=== PATIENT | female | born 1960 ===

== ENCOUNTER 2016-12-02 10:38 | Day surgery (SDC) | payer OTHER ==
[2016-11-25 11:14] VITALS: BMI 29.0
--- NOTE | 2016-12-02 12:20 | CP.PCM.PN ---
Objective - Vital Signs/Intake and Output Vital Signs (last 24 hours): Temp Pulse Resp BP Pulse Ox 98.5 F 69 18 128/90 97 12/02/16 11:05 12/02/16 11:05 12/02/16 11:05 12/02/16 11:05 12/02/16 11:05
--- NOTE | 2016-12-02 12:20 | CP.SDSHP ---
Same Day Surgery H & P - History Proposed Procedure: repair of hammer toes 5th digit foot bilateral Pre-Op Diagnosis: painful hammertoe deformity bilateral 5th digit - Previous Medical/Surgical History Pain: 5. - Allergies Allergies: Allergies No Known Allergies Allergy (Verified 11/25/16 09:10) - Physical Exam Vital Signs: Vital Signs 12/02/16 12/02/16 10:59 11:05 Temperature 98.5 F Pulse Rate 69 69 Respiratory 18 Rate Blood Pressure 128/90 O2 Sat by Pulse 97 Oximetry Mental Status: Alert & Oriented x3 Neuro: WNL - {Optional Preform as Required} Integument: WNL Ortho: WNL (tenderness to PIPJ of 5th digit bl) - Impression Impression: Pt S&E in SDS. NPO status confirmed, chart reviewed. All questions and concerns answered. No guarantees given nor implied. Will f/u w/ Dr. Stokes as outpatient Short Stay Discharge - Short Stay Discharge Admitting Diagnosis/Reason for Visit: M20.4 Disposition: HOME/ ROUTINE Medications: Cephalexin [cephalexin] 500 mg PO TID #21 cap oxyCODONE/Acetaminophen [Percocet 5/325 mg Tab] 1 ea PO Q6 PRN #30 tab PRN Reason: Pain, Moderate (4-7) oxyCODONE/Acetaminophen [Percocet 5/325 mg Tab] 5 - 325 mg PO .Q4-6 PRN #30 PRN Reason: Pain, Moderate (4-7) Referrals: Bam Stokes, DPM [Staff Provider] - Additional Instructions (Diet, Activity): -Keep dressing clean dry intact to both feet -wbat with surgical shoe -use cast bag for showering -take prescribed medications as directed -monitor for any signs infection -Follow up at [facility] podiatry clinic with Dr. Stokes 1 week Progress Note/Discharge Note with Instructions: -Pt S&E in recovery with VSS, neurovascular status intact to bilateral lower extremities -Denies f/n/v/c/sob/cp -(+) void, (+) appetite -Dressing to both feet appears c/d/i -Stable for discharge home -Follow up with Dr. Stokes 1 week
[2016-12-02] MEDS ORDERED: Lidocaine 1% Inj (20ml) ONE (12:21)
[2016-12-02] MEDS ORDERED: Propofol 10 mg/ml Inj (20 ML) ONE ×3 (12:28→13:41)
[2016-12-02] MEDS ORDERED: Midazolam 2 MG/2 ML VIAL ONE (12:29)
[2016-12-02] MEDS ORDERED: ceFAZolin 1 GM in Sodium Chloride 0.9% 100 ML IVPB ONE (12:34)
[2016-12-02] MEDS ORDERED: Bupivacaine 0.5% 50 ML IJ ONE (12:34)
[2016-12-02] MEDS ORDERED: Lactated Ringer's 1,000 ML IV ONE ×2 (12:52)
[2016-12-02] MEDS: Bupivacaine 0.5% Inj(30mL) ONE ×2 (12:58→13:00)
[2016-12-02] MEDS ORDERED: ePHEDrine 50 mg/ml Inj ONE (13:11)
[2016-12-02] MEDS ORDERED: Lactated Ringer's 1,000 ML IV SCH (14:01)
[2016-12-02] MEDS ORDERED: HYDROmorphone 0.5 mg/0.5 ml ISec IVP PRN (14:01)
--- NOTE | 2016-12-02 14:01 | PCM.SURG1 ---
Surgeon's Initial Post Op Note - Surgeon's Notes Surgeon: Dr. Stokes [employer]: Allyson Zhong PGY-2, Dorcas Felix PGY-1, Bogdan Hendrickson PGY-3 Type of Anesthesia: IV Sedation, Local Anesthesia Administered By: Dr. Harris Pre-Operative Diagnosis: Bilateral fifth digit hammertoe deformities Operative Findings: see dictation. M: 4-0 vicryl, 5-0 nylon. A: 15 ml 0.5% marcaine plain. I: 10 ml marcaine plain Post-Operative Diagnosis: same Operation Performed: bilateral 5th digit derotational PIPJ arthroplasty Specimen/Specimens Removed: none Estimated Blood Loss: EBL {In ML}: 1 Blood Products Given: N/A Drains Used: No Drains Post-Op Condition: Good Date of Surgery/Procedure: 12/02/16 Time of Surgery/Procedure: 13:00
[2016-12-02] MEDS ORDERED: Oxycodone/Acetaminophen 5/325 mg Tab PO PRN ×2 (14:03)
[2016-12-02 15:31] VITALS: RESP 18
--- NOTE | 2016-12-02 16:01 | RAD ---
PROCEDURE: Bilateral Feet Radiographs. HISTORY: s/p bilateral fifth digit hammertoe correction COMPARISON: 11/21/2016. FINDINGS: BONES: Right Foot: No acute fracture. Status post right 5th digit osteotomy. Left Foot: Status post left 5th digit osteotomy. JOINTS: Right Foot: Expected postoperative findings Left Foot: Symmetrical postoperative findings SOFT TISSUES: Right Foot: Soft tissue swelling noted at the surgical site Left Foot: Symmetrical soft tissue swelling at the surgical site. OTHER FINDINGS: None. IMPRESSION: Soft tissue swelling without acute articular or osseous abnormality.
[2016-12-02 16:28] VITALS: BP 124/84; PULSE 95; TEMP 97.8; O2SAT 100
--- NOTE | 2016-12-02 16:44 | OP ---
PROCEDURE DATE: 12/02/2016 SURGEON: Bam Stokes DPM. FRET SAW OPERATOR: Allyson Zhong, PGY-2, Dorcas Felix, PGY-1 and Bogdan Hendrickson, PGY-3. PREOPERATIVE DIAGNOSIS: Bilateral fifth digit hammertoe deformity. POSTOPERATIVE DIAGNOSIS: Bilateral fifth digit hammertoe deformity. NAME OF PROCEDURE: Bilateral fifth digit hammertoe correction. ANESTHESIA: IV sedation with local anesthesia. ANESTHESIOLOGIST: Dr. Harris . INDICATIONS: The patient is a 56-year-old female with the above-mentioned diagnoses. The patient has exhausted conservative treatment at this time and is now requesting surgical intervention. The patient signed a consent after careful explanation of risks, benefits, complications and alternatives for surgical procedure. No guarantees were given nor implied. Six hundred mg of clindamycin IV were given to the patient prior to the procedure. N.p.o. status was confirmed prior to taking the patient to the operating room. PREPARATION: The patient was brought into the operating room and placed on the operating table in supine position. A well-padded pneumatic ankle tourniquet was placed to bilateral ankles in a supramalleolar position. After induction of IV sedation, a total of 15 mL of 0.5% Marcaine plain were injected in a local block fashion divided between both feet. Bilateral feet were prepped and draped in the usual sterile manner and the procedure began. PROCEDURE #1: Left foot fifth digit hammertoe correction. Attention was directed to the fifth digit of the left foot where an elliptical incision was created overlying the apex of the deformity. The incision was deepened down to the subcutaneous tissues. The elliptical portion of skin was removed and passed from the operative field. At this time, the incision was deepened through the subcutaneous tissues down to the level of the extensor tendon. The extensor tendon was transected and the collateral ligaments were sharply transected medially and laterally, thus exposing the head of the proximal phalanx into the operative site. Next, using a sagittal bone saw, the head of the proximal phalanx was resected and passed from the operative field. The wound was copiously irrigated with normal sterile saline. The extensor tendon was repaired using 4-0 Vicryl subcuticular closure, then using 4-0 Vicryl and skin was closed using 5-0 nylon. At this time, the deformity was assessed and noted to be in a corrected position. An additional 5 mL of 0.5% Marcaine plain were injected following the procedure. The foot was then dressed using Betadine, Adaptic, 4 x 4s, Goyo and Jose bandage. PROCEDURE #2: Right foot fifth digit hammertoe correction. Attention was directed to the fifth digit of the right foot where an elliptical incision was created overlying the apex of the deformity. The incision was deepened down to the subcutaneous tissues. The elliptical portion of skin was removed and passed from the operative field. At this time, the incision was deepened through the subcutaneous tissues down to the level of the extensor tendon. The extensor tendon was transected and the collateral ligaments were sharply transected medially and laterally, thus exposing the head of the proximal phalanx into the operative site. Next, using a sagittal bone saw, the head of the proximal phalanx was resected and passed from the operative field. The wound was copiously irrigated with normal sterile saline. The extensor tendon was repaired using 4-0 Vicryl subcuticular closure, then using 4-0 Vicryl and skin was closed using 5-0 nylon. At this time, the deformity was assessed and noted to be in a corrected position. An additional 5 mL of 0.5% Marcaine plain were injected following the procedure. The foot was then dressed using Betadine, Adaptic, 4 x 4s, Goyo and Jose bandage. POSTOPERATIVE CONDITION: The patient tolerated the anesthesia and procedure well and was escorted to recovery room with vital signs stable and neurovascular status intact to bilateral feet. The patient will follow up with Dr. Stokes in the podiatry clinic next week. Allyson Zhong DPM Bam Stokes DPM cc: [id number] TT: 12/02/2016 16:43:56 godwin MORALES
== END 2016-12-02 16:31 | disposition home or self-care (01) ==
LOC: H.OPSURG 10:38
PROVIDERS: ATTEND Podiatrist Foot & Ankle Surgery
DX: M20.41 Other hammer toe(s) (acquired), right foot (principal); M20.42 Other hammer toe(s) (acquired), left foot; I10 Essential (primary) hypertension

== ENCOUNTER 2018-10-19 18:53 | Emergency (ER) | payer OTHER ==
[2018-10-19 18:53] VITALS: BMI 28.0
[2018-10-19 19:40] VITALS: BP 159/91; PULSE 72; RESP 16; TEMP 98; O2SAT 97
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
== END 2018-10-20 00:24 | disposition home or self-care (01) ==
LOC: H.ER 18:53
DX: M62.830 Muscle spasm of back (principal); M54.2 Cervicalgia; V43.52XA Car driver injured in collision with other type car in traffic accident, initial encounter; Y92.410 Unspecified street and highway as the place of occurrence of the external cause; I10 Essential (primary) hypertension
CPT/HCPCS: 70450; 72125; 96372; 99285; J1885